=== PATIENT | female | born 1935 | race American Indian/Alaskan Native ===

== ENCOUNTER 2016-11-19 11:51 | Emergency (ER) | payer MEDICARE ==
[2016-11-19 11:52] VITALS: PULSE 88; BMI 23.9
[2016-11-19 12:05] VITALS: TEMP 97.9
[2016-11-19] MEDS ORDERED: Albuterol-Ipratrop 3 mg / 0.5 (3 ml) UD IH STA (13:35)
[2016-11-19] MEDS ORDERED: Albuterol-Ipratrop 3 mg / 0.5 (3 ml) UD ONE (13:53)
--- NOTE | 2016-11-19 15:47 | CT ---
EXAM: CT Head Without Intravenous Contrast CLINICAL HISTORY: 81 years old, female; Injury or trauma; Fall; Initial encounter; Concussion / head injury; Injury date: 11/18/16; Injury details: Fell at residential; Additional info: Fell and hit her head yesterday TECHNIQUE: Axial computed tomography images of the head/brain without intravenous contrast. This CT exam was performed using one or more of the following dose reduction techniques: automated exposure control, adjustment of the mA and/or kV according to patient size, and/or use of iterative reconstruction technique. EXAM DATE/TIME: Exam ordered 11/19/2016 1:34 PM COMPARISON: No relevant prior studies available. FINDINGS: Brain: Basal ganglia calcifications are present. There is a dilated CSF containing space noted in the right posterior fossa measuring 2.3 x 2 x 2 cm.. There is relative atrophy of the right cerebellar hemisphere superiorly. There is a arachnoid cyst in the right perimesencephalic cistern measuring 1.6 x 1.3 x 1.5 cm. An area of low density is noted in the subcortical white matter the right frontal lobe No hemorrhage. No edema. Ventricles: Unremarkable. No ventriculomegaly. Bones/joints: Unremarkable. No acute fracture. Soft tissues: Unremarkable. Sinuses: Unremarkable as visualized. No acute sinusitis. Mastoid air cells: There is fluid noted within the left mastoid air cells. 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 IMPRESSION: 1. Focal area of low-density in the subcortical white matter the right frontal lobe. This could be result of recent trauma or a subacute infarct. No acute hemorrhage seen. 2. Right perimesencephalic arachnoid cyst. 3. 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 4. Left mastoiditis 5. Right phthisis bulbi
--- NOTE | 2016-11-19 16:24 | RAD ---
PROCEDURE: Right Knee Radiographs. HISTORY: Pain COMPARISON: None. FINDINGS: BONES: No acute fracture JOINTS: Normal. No osteoarthritisTricompartmental osteoarthritis. This is most severe in the lateral compartment with extensive subchondral sclerosis about the lateral compartment. There are osteophytes seen about all 3 joint compartments. There is narrowing of the medial and patellofemoral compartments. There are no articular erosions appreciated. There is a possible small osteochondroma of the posterior distal femur, incidentally noted. JOINT EFFUSION: Small OTHER FINDINGS: None. IMPRESSION: Tricompartmental osteoarthritis. Small joint effusion. Possible small osteochondroma of the posterior distal femur.
--- NOTE | 2016-11-19 16:26 | RAD ---
PROCEDURE: CHEST RADIOGRAPH, 1 VIEW HISTORY: Wheezing COMPARISON: None available. FINDINGS: LUNGS: Clear. PLEURA: No pneumothorax or pleural fluid seen. CARDIOVASCULAR: Mild cardiomegaly. AICD noted. OSSEOUS STRUCTURES: No significant abnormalities. VISUALIZED UPPER ABDOMEN: Normal. OTHER FINDINGS: Surgical clips noted projecting over right lung base, likely within right breast. Right axillary surgical clips are noted. IMPRESSION: No acute infiltrate.
--- NOTE | 2016-11-19 17:12 | C.PDOC ---
History Of Present Illness Pt states that she had a mechanical fall yesterday. She states she ambulates with her walker when her "bad" right knee gave out on her. She fell and hit her head on the ground. - HPI Time Seen by Provider: 11/19/16 13:27 Chief Complaint (Nursing): Trauma History Per: Patient Injury Occurred (Timing): Days Ago: (1) Location Of Injury: Right: Head, Knee Severity: Moderate Additional History Per: Prior Records Past Medical History Reviewed: Historical Data, Nursing Documentation, Vital Signs Vital Signs: Last Vital Signs Temp 97.9 F 11/19/16 12:05 Pulse 60 11/19/16 12:05 Resp 18 11/19/16 12:05 BP 159/63 H 11/19/16 12:05 Pulse Ox 92 L 11/19/16 12:05 - Medical History PMH: Anemia (iron deficient), Arthritis, Asthma, COPD, Emphysema, HTN, Hypercholesterolemia, Hypothyroidism Family History: States: Unknown Family Hx - Social History Hx Alcohol Use: No Hx Substance Use: No Review Of Systems Except As Marked, All Systems Reviewed And Found Negative. Constitutional: Negative for: Fever, Weakness Cardiovascular: Negative for: Chest Pain Respiratory: Negative for: Cough, Shortness of Breath Gastrointestinal: Negative for: Vomiting, Abdominal Pain Musculoskeletal: Negative for: Neck Pain Neurological: Negative for: Weakness, Numbness, Seizures, Altered Mental Status Physical Exam - Physical Exam Appears: Non-toxic, No Acute Distress Skin: Normal Color, Warm, Dry Head: Atraumatic, Normacephalic Eye(s): right: Other (blind), left: PERRL Neck: Normal ROM, Supple Cardiovascular: Rhythm Regular Respiratory: No Accessory Muscle Use, Wheezing (mild scattered) Gastrointestinal/Abdominal: Soft, No Tenderness Back: No CVA Tenderness Extremity: Normal ROM, No Deformity Neurological/Psych: Oriented x3, Normal Speech, Normal Cognition, Normal Motor, Normal Sensation ED Course And Treatment - Radiology CXR: Viewed By Me, Read By Radiologist CXR Interpretation: Yes: No Acute Disease Nexus Criteria: Negative - Other Rad Right knee x-rays X-Ray: Viewed By Me, Read By Radiologist Interpretation: IMPRESSION: Tricompartmental osteoarthritis. Small joint effusion. Possible small osteochondroma of the posterior distal femur. - CT Scan/US CT head Other Rad Studies (CT/US): Read By Radiologist, Radiology Report Reviewed CT/US Interpretation: IMPRESSION: 1. Focal area of low-density in the subcortical white matter the right frontal. lobe. This could be result of recent trauma or a subacute infarct. No acute. hemorrhage seen. . 2. Right perimesencephalic arachnoid cyst. . 3. 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 . 4. Left mastoiditis. . 5. Right phthisis bulbi Progress - Interventions Interventions:: Observation - Medications Administered Oral: Acetaminophen Inhaled nebulized: Anticholinergic, Beta-2 agonist - Data Reviewed Data Reviewed: Diagnostic imaging, Old records - Patient Status Patient status: Mostly improved - Continuity of Care Discussed patient case with:: Patient, ED Nurse Discussed pt. case with business process consultant/specialty: Neurology - Patient Plan Patient Plan: Discharge, F/U with PCP, Continue present meds Disposition Discussed With : Jon Colin Comment: I discussed the pt's presentation and CT head findings with him. He states pt can be discharged home and f/up as outpt for further evaluation. Counseled Patient/Family Regarding: Studies Performed, Diagnosis, Need For Followup - Disposition Disposition: HOME/ ROUTINE Disposition Time: 17:18 Condition: IMPROVED Additional Instructions: Follow up with a primary doctor this week. Return to the ER if you develop weakness, numbness, vomiting, chest pain, shortness of breath, worsening of symptoms or if you have any other concerns. Instructions: Fall Prevention for Older Adults (ED) - Clinical Impression Clinical Impression: Fall at home
[2016-11-19 20:16] VITALS: BP 187/77; PULSE 70; RESP 20; O2SAT 95
== END 2016-11-19 20:07 | disposition home or self-care (01) ==
LOC: C.ER 11:51
DX: Z04.3 Encounter for examination and observation following other accident (principal)